=== PATIENT | female | born 1985 | race Caucasian/White ===

== ENCOUNTER → 2017-11-26 08:53 | Outpatient (CLI) | payer BC | END | disposition home or self-care (01) | LOC: D.US 08:53 | DX: R10.11 Right upper quadrant pain (principal) ==

== ENCOUNTER → 2017-12-20 07:16 | Outpatient (CLI) | payer BC | END | disposition home or self-care (01) | LOC: D.NM 07:16 | DX: R10.9 Unspecified abdominal pain (principal) ==

== ENCOUNTER → 2018-03-13 12:38 | Outpatient (CLI) | payer BC | END | disposition home or self-care (01) | LOC: D.CT 12:38 | DX: R10.9 Unspecified abdominal pain (principal) ==

== ENCOUNTER → 2018-03-27 08:47 | Outpatient (CLI) | payer BC | END | disposition home or self-care (01) | LOC: D.LAB 08:47 | DX: Z84.89 Family history of other specified conditions (principal); R10.31 Right lower quadrant pain; R10.11 Right upper quadrant pain; R19.7 Diarrhea, unspecified ==

== ENCOUNTER → 2018-05-27 07:14 | Outpatient (CLI) | payer BC ==
[2018-05-27 08:34] LABS: ALBUMIN 3.9 g/dL (3.4-5.0); BILIRUBIN - DIRECT 0.09 mg/dL (0.00-0.30); BILIRUBIN - INDIRECT 0.25 mg/dL (0.00-1.00); BILIRUBIN - TOTAL 0.34 mg/dL (0.2-1.3); PROTEIN - SERUM 7.2 g/dL (6.4-8.2)
== END | disposition home or self-care (01) ==
LOC: D.US 07:14
PROVIDERS: ATTEND Internal Medicine Gastroenterology
DX: K76.0 Fatty (change of) liver, not elsewhere classified (principal)

== ENCOUNTER → 2018-06-04 11:01 | Outpatient (CLI) | payer BC | END | disposition home or self-care (01) | LOC: D.NM 11:01 | PROVIDERS: ATTEND Internal Medicine Gastroenterology | DX: K76.0 Fatty (change of) liver, not elsewhere classified (principal); K21.9 Gastro-esophageal reflux disease without esophagitis; R19.7 Diarrhea, unspecified; R11.2 Nausea with vomiting, unspecified; R10.13 Epigastric pain; R10.11 Right upper quadrant pain ==